=== PATIENT | male | born 1980 | race Two or more races ===

== ENCOUNTER 2024-08-22 17:29 | Emergency (ER) | payer MEDICAID, SELFPAY ==
[2024-08-22 17:36] VITALS: BP 143/88; PULSE 88; RESP 18; TEMP 37.2; O2SAT 97; BMI 27.8
--- NOTE | 2024-08-22 17:46 | PD.EDEYE ---
ED Eye Problem RME/HPI General Chief complaint: Eye Problems Stated complaint: PAIN/REDNESS/DRAINAGE FROM EYES Time Seen by Provider: 08/22/24 17:39 Arrival date/time: 08/22/24 17:29 44-year-old male reports with complaints of bilateral eye redness and purulent discharge x 1 day. Patient denies any loss of vision or changes in vision. Patient does report some mild discomfort in the eyes. He denies use any medications for symptoms. Limitations: no limitations Related Data Previous Rx's ?Medication ?Instructions ?Recorded sulfacetamide sodium 10 % eye drops 2 drp ophthalmic (eye) Q3H 7 days 08/22/24 #15 mL Allergies Allergy/AdvReac Type Severity Reaction Status Date / Time No Known Allergies Allergy Verified 08/22/24 17:31 Review of Systems Constitutional Constitutional: Denies chills, Denies fever(s) and Denies headache(s) Eyes Eyes: Denies blurry vision, Denies diplopia, Reports eye discharge, Denies floaters, Reports irritation, Reports itchy eyes, Denies loss of peripheral vision, Denies other visual disturbances and Denies photophobia ENT Ears, Nose, Mouth, and Throat: Denies headache(s) and Denies vertigo Integumentary/Breasts Skin/Breast: Denies erythema and Denies rash Neurologic Neurologic: Denies headache(s) and Denies vertigo Allergic/Immunologic Allergic/Immunologic: Reports itchy eyes Past Medical History Social History SMOKING STATUS: Never smoker ED Exam General Limitations: Present no limitations General appearance: Present alert and in no apparent distress Head Head exam: Present atraumatic Eye Eye exam: Present PERRL, EOMI, conjunctival injection and other (Sclera conjunctiva injected scant purulent discharge medial aspect bilaterally); Absent normal appearance or nystagmus ENT ENT exam: Present normal exam, normal oropharynx and mucous membranes moist Neurological Exam Neurological exam: Present alert, oriented X3 and CN II-XII intact Psychiatric Psychiatric exam: Present normal affect and normal mood Skin Skin exam: Present warm, dry, intact and normal color Course Quality Measures none Vital Signs Vital signs: Vital Signs Temperature 99.0 F 08/22/24 17:36 Pulse Rate 88 08/22/24 17:36 Respiratory Rate 18 08/22/24 17:36 Blood Pressure 143/88 H 08/22/24 17:36 Pulse Oximetry (%) 97 08/22/24 17:36 Oxygen Delivery Method Room Air 08/22/24 17:36 Eye Patient data External records reviewed:: None Clinical information provided by:: patient Social determinants that could affect healthcare access:: none Patient has the following chronic illnesses:: NONE How is presenting disease/condition affected by chronic disease/condition?: no chronic disease Evaluation data The following diagnostics were reviewed and interpreted by me:: other (specify) (NONE) Lab and/or radiology exams considered but not ordered:: N/A Interpretation Summary: N/A Medications / Prescriptions Medications or Prescriptions considered but not ordered:: NONE Medication administrations:: NONE Consultations Consultation(s) initiated? (list below): No Diagnosis Eye Problem Differential Diagnosis: corneal abrasion, conjunctivitis and subconjunctival hemorrhage Most likely diagnosis given after review of the tests above:: Bilateral bacterial conjunctivitis Admission Indicated Admission indicated?: not indicated Admission Request Was there a request for admission?: No Disposition Plan Disposition Plan: Discharge Discharge Attestation Discharge Attestation: The patient and all family members were given an opportunity to ask questions and understood the discharge instructions. Discharge instructions specifically effects, indications for sooner follow up or return to the emergency department, and the expected course of current diagnosis. Patient condition: Stable Discharge Plan Plan Patient Disposition: HOME (Self Care) Prescriptions/Referrals Prescriptions/Med Rec: New sulfacetamide sodium 10 % drops 2 drp ophthalmic (eye) Q3H 7 Days Qty: 15 0RF Rx Instructions: USE DURING AWAKE HOURS Problem List Clinical Impression: Bacterial conjunctivitis Patient/Caregiver Discharge Instructions Discharge Activity: activity as tolerated Education Materials: ED Conjunctivitis, Bacterial Additional Instructions: Use medications as directed during awake hours for the next 7 days. Avoid rubbing eyes wash hands often also wipe doorknobs handles and light switches to help avoid the spread of the infection. Follow-up with your primary care provider if no improvement in 3 days with the medication Print Language: Cambodian Stand Alone Forms: Cristina Award Info., Patient Portal Info Letter
== END 2024-08-22 18:17 | disposition home or self-care (01) ==
LOC: SERX 18:09
PROVIDERS: Emergency Provider Emergency Medicine
DX: H10.89 Other conjunctivitis (principal)
CPT/HCPCS: 99281